=== PATIENT | male | born 1970 | race Caucasian/White ===

== ENCOUNTER 2018-08-24 16:00 | Emergency (ER) | payer MEDICAID ==
[~2018-08-24] VITALS: Wt 104.4 kg
[2018-08-24] MEDS ORDERED: KETOROLAC 60 MG INJ IM STA (18:20)
[2018-08-24] MEDS ORDERED: ACETAMINOPHEN 500 MG TAB PO STA (18:21)
[2018-08-24] MEDS ORDERED: CYCLOBENZAPRINE 10 MG TAB PO ONE (18:30)
[2018-08-24] MEDS ORDERED: DEXAMETHASONE 10 MG/ML 1 ML INJ IM ONE (18:30)
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
[2018-08-24] MEDS ORDERED: CYCL10TA7 PO (19:41)
[2018-08-24] MEDS ORDERED: ACET500C5 PO (19:41)
[2018-08-24] MEDS ORDERED: IBUP800T48 PO (19:41)
[2018-08-24] MEDS ORDERED: BACL10TA PO (19:42)
[2018-08-24 19:49] VITALS: BP 137/64; PULSE 90; RESP 19
== END 2018-08-24 19:50 | disposition home or self-care (01) ==
LOC: FTE 16:00
DX: S23.3XXA Sprain of ligaments of thoracic spine, initial encounter (principal); S33.9XXA Sprain of unspecified parts of lumbar spine and pelvis, initial encounter; V53.5XXA Driver of pick-up truck or van injured in collision with car, pick-up truck or van in traffic accident, initial encounter
CPT/HCPCS: 81003; 96372; J1100; J1885; Z7502; Z7610